=== PATIENT | male | born 1985 | race Caucasian/White ===

== ENCOUNTER 2016-07-14 20:46 | Emergency (ER) | payer OTHER ==
--- NOTE | 2016-07-16 04:09 | ER ---
ADMIT: 07/14/2016 RM/LOC: ER [facility] MR#: [id number] [facility] [address] [place], [place] [id number] DENISHA SANABRIA [address] [place], [place] [id number] Emergency Room Report SEX: M AGE: 31 : 1985 DATE: 07/14/2016 TIME: 2045 Please refer to my T-sheet for complete H and P. HISTORY OF PRESENT ILLNESS: Briefly, the patient is a 31-year-old, who is relatively healthy. He was stung by an insect yesterday. He thinks it has been severely swollen now. He has red streaks going up his arm. It is on his right arm, rates it 5/10. PHYSICAL EXAMINATION: VITAL SIGNS: Stable. EXTREMITIES: He has about 6-8 cm circumferential area that is swollen with a central area consistent with an insect bite, but he does have lymphangitic redness. EMERGENCY DEPARTMENT COURSE: Uneventful. He was given prednisone, Bactrim, and Keflex and ready for discharge. ASSESSMENT: Right arm cellulitis/localized allergic reaction. PLAN: Prednisone 20 b.i.d. for 5 days, Keflex 500 q.i.d. for 7 days, Bactrim DS b.i.d. for 7 days. Estrada Pastor MD/ mariola JOB #: [id number] CC: Estrada Pastor MD, Attending Physician
== END 2016-07-14 21:35 | disposition home or self-care (01) ==
LOC: ER 20:46
DX: L03.113 Cellulitis of right upper limb (principal); T78.40XA Allergy, unspecified, initial encounter; F17.210 Nicotine dependence, cigarettes, uncomplicated